=== PATIENT | female | born 1955 | race Caucasian/White ===

== ENCOUNTER 2017-10-30 20:53 | Observation (INO) ==
[2017-10-30 23:18] LABS: Basophils # 0.1 10*3/uL (0.0-0.2); Basophils % 0.9 % (0.0-0.8); Eosinophils # 0.3 10*3/uL (0.0-0.87); Eosinophils % 4.3 % (0.00-10.9); Hematocrit 44.5 VOL% (35.7-47.0); Hemoglobin 14.5 GM/DL (12.0-16.0); Immature Granulocytes % 0.1 %; Immature Granulocytes Absolute 0.01 #; Lymphocytes # 2.5 10*3/uL (1.4-4.0); Lymphocytes % 31.8 % (21.3-54.2); Mean Corpuscular HGB Conc 32.6 GM/DL (32-36); Mean Corpuscular Hemoglobin 29 PG (27-34); Mean Corpuscular Volume 89.9 FL (87-102); Mean Platelet Volume 9.8 FL (9.6-12.0); Monocytes # 0.7 10*3/uL (0.11-0.8); Monocytes % 8.5 % (1.7-12.7); Neutrophils # 4.3 10*3/uL (1.4-7.4); Neutrophils % 54.4 % (38.7-73.9); Platelet Count 300 T/CUMM (130-400); Red Blood Count 4.95 MC/CUMM (3.8-5.5); Red Cell Distribution Width 12.9 % (9.3-17.3); White Blood Count 7.9 T/CUMM (4-12)
[2017-10-30 23:30] LABS: INR 0.9; PT Patient Result 9.8 SECS; Partial Thromboplastin Time 24.5 SECS (0-40)
[2017-10-30 23:55] LABS: Alanine Aminotransferase 30 U/L (13-56); Albumin 3.9 G/DL (3.4-5.0); Alkaline Phosphatase 116 U/L (45-117); Aspartate Amino Transferase 15 U/L (0-37); Bilirubin,Total < 0.39 MG/DL (0.2-1.0); Blood Urea Nitrogen 21 MG/DL (7-18); Calcium 9.3 MG/DL (8.5-10.1); Glucose 100 MG/DL (74-106); Osmolality,Calculated 283.3 MOS/KG (273-304); Potassium 3.8 MMOL/L (3.5-5.1); Sodium 141 MMOL/L (136-145); Total Protein 7.3 G/DL (6.4-8.3)
[2017-10-31] MEDS ORDERED: MAGNESIUM SULF RIDER 4 GM in PREMIX 1 EACH IV PRN (00:33)
[2017-10-31] MEDS ORDERED: NITROGLYCERIN SL 0.4 MG TABLET SL ONE (00:33)
[2017-10-31] MEDS ORDERED: MAGNESIUM SULF RIDER 2 GM in PREMIX 1 EACH IV PRN (00:33)
[2017-10-31] MEDS ORDERED: NITROGLYCERIN SL 0.4 MG TABLET SL PRN (00:33)
[2017-10-31] MEDS ORDERED: ACETAMINOPHEN 325 MG TABLET PO PRN (00:33)
[2017-10-31] MEDS ORDERED: ASPIRIN 325 MG TABLET PO STA (00:33)
[2017-10-31] MEDS ORDERED: ALUM/MAG/SIMETH/LIDO VISC 1:1 30 ML BOTTLE PO ONE (00:33)
[2017-10-31] MEDS ORDERED: ONDANSETRON 4 MG/2 ML VIAL IV PRN (00:33)
[2017-10-31 03:42] LABS: Basophils # 0.1 10*3/uL (0.0-0.2); Basophils % 0.7 % (0.0-0.8); Eosinophils # 0.3 10*3/uL (0.0-0.87); Eosinophils % 4.8 % (0.00-10.9); Hematocrit 40.6 VOL% (35.7-47.0); Hemoglobin 13.1 GM/DL (12.0-16.0); Immature Granulocytes % 0.3 %; Immature Granulocytes Absolute 0.02 #; Lymphocytes # 2.2 10*3/uL (1.4-4.0); Lymphocytes % 31.5 % (21.3-54.2); Mean Corpuscular HGB Conc 32.3 GM/DL (32-36); Mean Corpuscular Hemoglobin 29 PG (27-34); Mean Platelet Volume 9.7 FL (9.6-12.0); Monocytes # 0.6 10*3/uL (0.11-0.8); Monocytes % 8.4 % (1.7-12.7); Neutrophils # 3.7 10*3/uL (1.4-7.4); Neutrophils % 54.3 % (38.7-73.9); Platelet Count 270 T/CUMM (130-400); Red Blood Count 4.56 MC/CUMM (3.8-5.5); Red Cell Distribution Width 12.7 % (9.3-17.3); White Blood Count 6.9 T/CUMM (4-12)
[2017-10-31 04:35] LABS: Albumin 3.5 G/DL (3.4-5.0); Bilirubin,Total 0.8 MG/DL (0.2-1.0); Calcium 8.8 MG/DL (8.5-10.1); Osmolality,Calculated 284.3 MOS/KG (273-304); Potassium 3.5 MMOL/L (3.5-5.1); Total Protein 6.7 G/DL (6.4-8.3); VLDL CHOLESTEROL 27.6 MG/DL
[2017-10-31 04:36] LABS: Risk Ratio 5.29; Thyroid Stimulating Hormone 1.55 uIU/ml (0.358-3.74)
[2017-10-31] MEDS: ENOXAPARIN 40 MG/0.4 ML SYRINGE SUBCUT SCH (09:53)
[2017-10-31] MEDS: PANTOPRAZOLE 40 MG TABLET PO SCH (09:53)
[2017-10-31 10:50] LABS: Apearance,Urine CLEAR (Clear); Bilirubin,Urine Negative (Negative); Blood, Urine Negative (Negative); Glucose,Urine (UA) Negative (Negative); Ketones,Urine Negative (Negative); Nitrite,Urine Negative (Negative); Protein,Urine Negative; Urine Color Straw (Yellow); Urine Urobilinogen < 2.0 EU/DL (0.2-1.0); WBC,Urine 1 /HPF (0-6)
[2017-11-01] MEDS: PANTOPRAZOLE 40 MG TABLET PO SCH (09:06)
[2017-11-01] MEDS: ENOXAPARIN 40 MG/0.4 ML SYRINGE SUBCUT SCH (09:08)
[2017-11-01 11:06] VITALS: BP 112/57
== END 2017-11-01 11:39 | disposition home or self-care (01) ==
LOC: N.ED 20:53 → N.EDINP 20:53 → N.TELEN 10-31 01:20
PROVIDERS: ADMIT Internal Medicine; ATTEND Internal Medicine

== ENCOUNTER 2019-10-29 20:27 | Observation (INO) ==
[2019-10-29] MEDS ORDERED: NITROGLYCERIN SL 0.4 MG TABLET SL PRN (23:32)
[2019-10-29] MEDS ORDERED: HYDROmorphone 2 MG/1 ML VIAL IV PRN (23:32)
[2019-10-29] MEDS ORDERED: GLUCAGON 1 MG VIAL IM PRN ×2 (23:33)
[2019-10-29] MEDS ORDERED: ACETAMINOPHEN 325 MG TABLET PO PRN (23:33)
[2019-10-29] MEDS ORDERED: DEXTROSE 50% 25 GM/50 ML VIAL IV PRN ×2 (23:33)
[2019-10-29] MEDS ORDERED: ALBUTEROL 2.5 MG/3 ML NEB RESP TX PRN (23:33)
[2019-10-29] MEDS ORDERED: DOCUSATE SODIUM 100 MG CAPSULE PO PRN (23:33)
[2019-10-30 00:32] LABS: Osmolality,Calculated 279.3 MOS/KG (273-304)
[2019-10-30 00:37] LABS: Risk Ratio 4.95; VLDL CHOLESTEROL 22.8 MG/DL
[2019-10-30 00:48] LABS: Basophils # 0.1 10*3/uL (0.0-0.2); Basophils % 0.9 % (0.0-0.8); Eosinophils # 0.2 10*3/uL (0.0-0.87); Eosinophils % 2.7 % (0.00-10.9); Hematocrit 41.5 VOL% (35.7-47.0); Hemoglobin 13.5 GM/DL (12.0-16.0); Immature Granulocytes % 0.6 %; Immature Granulocytes Absolute 0.04 #; Lymphocytes # 1.9 10*3/uL (1.4-4.0); Lymphocytes % 30.1 % (21.3-54.2); Mean Corpuscular HGB Conc 32.5 GM/DL (32-36); Mean Platelet Volume 9.2 FL (9.6-12.0); Monocytes % 7.9 % (1.7-12.7); Neutrophils % 57.8 % (38.7-73.9); Platelet Count 296 T/CUMM (130-400); Red Blood Count 4.56 MC/CUMM (3.8-5.5); Red Cell Distribution Width 12.9 % (9.3-17.3); White Blood Count 6.4 T/CUMM (4-12)
[2019-10-30] MEDS: INSULIN LISPRO 100 UNIT/ML SUBCUT SCH ×4 (08:34→21:55)
[2019-10-30] MEDS: MAGNESIUM OXIDE 400 MG TABLET PO SCH (08:35)
[2019-10-30] MEDS: CHOLECALCIFEROL 5,000 UNIT TABLET PO SCH (08:35)
[2019-10-30] MEDS: ENOXAPARIN 40 MG/0.4 ML SYRINGE SUBCUT SCH (08:36)
[2019-10-30] MEDS ORDERED: ASPIRIN CHEW 81 MG TABLET PO SCH (09:00)
[2019-10-30] MEDS: ONDANSETRON 4 MG/2 ML VIAL IV PRN (10:02)
[2019-10-30] MEDS ORDERED: POTASSIUM CHLORIDE 20 MEQ/15 ML UDCUP PO ONE (11:45)
[2019-10-30] MEDS: GABAPENTIN 100 MG CAPSULE PO SCH ×3 (13:01→20:45)
[2019-10-30] MEDS: PANTOPRAZOLE 40 MG TABLET PO SCH ×2 (13:02→20:45)
[2019-10-30] MEDS: ACETAMINOPHEN 325 MG TABLET PO SCH ×3 (13:02→20:45)
[2019-10-30] MEDS ORDERED: carvediloL 6.25 MG TABLET PO SCH (14:30)
[2019-10-30] MEDS ORDERED: LORATADINE 10 MG TABLET PO PRN (15:05)
[2019-10-30] MEDS: CALCIUM (CARBONATE)/VITAMIN D 600 MG-400 UNIT TABLET PO SCH (18:34)
[2019-10-30] MEDS: carvediloL 3.125 MG TABLET PO SCH (20:45)
[2019-10-31 06:18] LABS: Alanine Aminotransferase 31 U/L (13-56); Albumin 3.1 G/DL (3.4-5.0); Alkaline Phosphatase 72 U/L (45-117); Aspartate Amino Transferase 12 U/L (0-37); Bilirubin,Total < 0.39 MG/DL (0.2-1.0); Blood Urea Nitrogen 14 MG/DL (7-18); Calcium 9.2 MG/DL (8.5-10.1); Estimated Glom Filtration Rate 56 ML/MIN; Glucose 127 MG/DL (74-106); Osmolality,Calculated 285.1 MOS/KG (273-304); Total Protein 6.2 G/DL (6.4-8.3)
[2019-10-31] MEDS: INSULIN LISPRO 100 UNIT/ML SUBCUT SCH ×4 (08:35→20:43)
[2019-10-31] MEDS: PANTOPRAZOLE 40 MG TABLET PO SCH ×2 (08:39→20:44)
[2019-10-31] MEDS: GABAPENTIN 100 MG CAPSULE PO SCH ×4 (08:39→21:30)
[2019-10-31] MEDS: ASPIRIN EC 81 MG TABLET PO SCH (08:39)
[2019-10-31] MEDS: MAGNESIUM OXIDE 400 MG TABLET PO SCH (08:39)
[2019-10-31] MEDS: buPROPion SR 150 MG TABLET PO SCH (08:39)
[2019-10-31] MEDS: CHOLECALCIFEROL 5,000 UNIT TABLET PO SCH (08:39)
[2019-10-31] MEDS: ACETAMINOPHEN 325 MG TABLET PO SCH ×3 (08:39→20:43)
[2019-10-31] MEDS: ENOXAPARIN 40 MG/0.4 ML SYRINGE SUBCUT SCH (08:39)
[2019-10-31] MEDS: carvediloL 3.125 MG TABLET PO SCH ×2 (08:40→20:43)
[2019-10-31] MEDS ORDERED: lisinopriL 10 MG TABLET PO SCH (09:00)
[2019-10-31] MEDS: CALCIUM (CARBONATE)/VITAMIN D 600 MG-400 UNIT TABLET PO SCH (20:42)
[2019-11-01 05:18] LABS: Basophils # 0.1 10*3/uL (0.0-0.2); Basophils % 0.9 % (0.0-0.8); Eosinophils # 0.2 10*3/uL (0.0-0.87); Eosinophils % 3.6 % (0.00-10.9); Hematocrit 39.7 VOL% (35.7-47.0); Hemoglobin 13.2 GM/DL (12.0-16.0); Immature Granulocytes % 0.4 %; Immature Granulocytes Absolute 0.03 #; Lymphocytes # 2.2 10*3/uL (1.4-4.0); Lymphocytes % 33.6 % (21.3-54.2); Mean Corpuscular HGB Conc 33.2 GM/DL (32-36); Mean Corpuscular Volume 91.1 FL (87-102); Mean Platelet Volume 9.3 FL (9.6-12.0); Monocytes % 7.9 % (1.7-12.7); Neutrophils % 53.6 % (38.7-73.9); Platelet Count 285 T/CUMM (130-400); Red Blood Count 4.36 MC/CUMM (3.8-5.5); Red Cell Distribution Width 12.6 % (9.3-17.3); White Blood Count 6.7 T/CUMM (4-12)
[2019-11-01 05:33] LABS: Calcium 8.7 MG/DL (8.5-10.1); Osmolality,Calculated 284.1 MOS/KG (273-304)
[2019-11-01] MEDS: INSULIN LISPRO 100 UNIT/ML SUBCUT SCH ×4 (07:16→21:15)
[2019-11-01] MEDS ORDERED: LIDOCAINE 2% 5 ML VIAL ONE (09:00)
[2019-11-01] MEDS ORDERED: propofoL 200 MG/20 ML VIAL IV ONE (09:00)
[2019-11-01] MEDS: ONDANSETRON 4 MG/2 ML VIAL IV PRN ×3 (11:33→19:02)
[2019-11-01] MEDS: LACTATED RINGERS 1,000 ML IV SCH (11:53)
[2019-11-01] MEDS: GABAPENTIN 100 MG CAPSULE PO SCH ×2 (12:15→15:37)
[2019-11-01] MEDS: ACETAMINOPHEN 325 MG TABLET PO SCH ×3 (12:15→21:15)
[2019-11-01] MEDS: carvediloL 3.125 MG TABLET PO SCH ×2 (12:15→21:15)
[2019-11-01] MEDS: PANTOPRAZOLE 40 MG TABLET PO SCH ×3 (12:15→21:15)
[2019-11-01] MEDS ORDERED: ONDANSETRON 4 MG/2 ML VIAL ONE (13:04)
[2019-11-01] MEDS: CHOLECALCIFEROL 5,000 UNIT TABLET PO SCH (15:37)
[2019-11-01] MEDS: MAGNESIUM OXIDE 400 MG TABLET PO SCH (15:37)
[2019-11-01] MEDS: buPROPion SR 150 MG TABLET PO SCH (15:37)
[2019-11-01] MEDS: ASPIRIN EC 81 MG TABLET PO SCH (15:37)
[2019-11-01] MEDS: CALCIUM (CARBONATE)/VITAMIN D 600 MG-400 UNIT TABLET PO SCH (18:36)
[2019-11-01] MEDS ORDERED: AMITRIPTYLINE 25 MG TABLET PO SCH (21:00)
[2019-11-01] MEDS ORDERED: ROSUVASTATIN 10 MG TABLET PO SCH (21:00)
[2019-11-01] MEDS ORDERED: ALUMINUM/MAGNES/SIMETH MAX STR 30 ML UDCUP PO PRN (22:40)
[2019-11-02 05:53] LABS: Basophils # 0.1 10*3/uL (0.0-0.2); Eosinophils # 0.3 10*3/uL (0.0-0.87); Eosinophils % 3.6 % (0.00-10.9); Hematocrit 40.9 VOL% (35.7-47.0); Hemoglobin 13.3 GM/DL (12.0-16.0); Immature Granulocytes % 0.7 %; Immature Granulocytes Absolute 0.05 #; Lymphocytes # 2.2 10*3/uL (1.4-4.0); Lymphocytes % 31.8 % (21.3-54.2); Mean Corpuscular HGB Conc 32.5 GM/DL (32-36); Mean Corpuscular Volume 91.7 FL (87-102); Mean Platelet Volume 9.4 FL (9.6-12.0); Monocytes % 9.6 % (1.7-12.7); Neutrophils % 53.3 % (38.7-73.9); Platelet Count 291 T/CUMM (130-400); Red Blood Count 4.46 MC/CUMM (3.8-5.5); Red Cell Distribution Width 12.8 % (9.3-17.3)
[2019-11-02 06:09] LABS: Calcium 8.9 MG/DL (8.5-10.1); Osmolality,Calculated 283.1 MOS/KG (273-304)
[2019-11-02] MEDS: INSULIN LISPRO 100 UNIT/ML SUBCUT SCH ×2 (09:00→12:30)
[2019-11-02] MEDS: LACTATED RINGERS 1,000 ML IV SCH (09:00)
[2019-11-02] MEDS: MAGNESIUM OXIDE 400 MG TABLET PO SCH (09:01)
[2019-11-02] MEDS: PANTOPRAZOLE 40 MG TABLET PO SCH (09:01)
[2019-11-02] MEDS: ACETAMINOPHEN 325 MG TABLET PO SCH ×2 (09:01→15:14)
[2019-11-02] MEDS: ASPIRIN EC 81 MG TABLET PO SCH (09:02)
[2019-11-02] MEDS: buPROPion SR 150 MG TABLET PO SCH (09:02)
[2019-11-02] MEDS: CHOLECALCIFEROL 5,000 UNIT TABLET PO SCH (09:02)
[2019-11-02] MEDS: carvediloL 3.125 MG TABLET PO SCH (09:04)
[2019-11-02 12:46] VITALS: BP 124/64
== END 2019-11-02 16:30 | disposition home or self-care (01) ==
LOC: SUATTDRO 23:11 → N.TELES 23:11 → INTOOBSV 23:11 → N.TELES 23:44
PROVIDERS: ADMIT Internal Medicine; ATTEND Family Medicine